=== PATIENT | female | born 2000 | race Two or more races ===

== ENCOUNTER 2023-05-23 17:06 | Emergency (ER) | payer OTHER ==
[~2023-05-23] VITALS: Ht 167.6 cm; Wt 68.0 kg
[2023-05-23] MEDS ORDERED: PEPCID AC20 MG PO (20:28)
== END 2023-05-23 20:34 | disposition home or self-care (01) ==
LOC: ER 17:07
PROVIDERS: General Practice
DX: O26.891 Other specified pregnancy related conditions, first trimester (principal); Z3A.01 Less than 8 weeks gestation of pregnancy; R55 Syncope and collapse; R19.7 Diarrhea, unspecified